=== PATIENT | male | born 1970 | race Caucasian/White ===

== ENCOUNTER → 2023-03-19 | Outpatient (CLI) | payer BC ==
--- NOTE | 2023-03-21 08:02 | CT ---
EXAMINATION TYPE: CT sinus wo con CT DLP: 556.9 mGycm, Automated exposure control for dose reduction was used. DATE OF EXAM: 03/19/2023 8:42 AM COMPARISON: None. CLINICAL INDICATION:Male, 53 years old with history of R51.9 HEADACHE, UNSPECIFIED; , headaches TECHNIQUE: Multiple thin axial images were obtained through the paranasal sinuses without the use of IV contrast. Additional coronal and sagittal reformatted images were submitted for evaluation. Contrast used: none Oral contrast used: none FINDINGS: Frontal sinuses: Normally developed and aerated. Frontal Recess: Clear Maxillary Sinuses: Normally developed and aerated. Partially septated on the right. Maxillary Infundibula([facility]): Clear, No Jennifer cells identified. Ethmoid sinuses: Normally developed and aerated. Ethmoidal notch: Protected and abutting the lateral lamina. Sphenoid sinuses: Normally developed and aerated. There is sphenoid sinus pneumatization which extend s laterally bilaterally. No dehiscence of carotid canal. No evidence of optic nerve dehiscence within the sphenoid sinus. No evidence of Onodi cells. Sphenoethmoidal recesses: Clear. Nasal septum: Deviated towards the right significantly inferiorly. Nasal Turbinates: Within normal limits. . Mastoid air cells & middle ears: The air cells are clear. The middle ears are grossly unremarkable. Modified Soft tissues & Brain: Partially seen without gross abnormality. Globes are intact. Other: Cribriform plate demonstrates symmetric Keros classification type 2 cribriform plate. No evidence of bony dehiscence of skull base. Lamina papyracea is intact without evidence of remote orbital fracture or orbital prolapse into the e thmoid sinus. Pneumatization of the ivone ady. IMPRESSION: 1. No significant mucosal sinus disease. 2. The ostiomeatal units, frontonasal and sphenoethmoidal recesses are clear. 3. Significant nasal septal deviation towards the right inferiorly.
== END | disposition home or self-care (01) ==
LOC: RADCTMAIN 08:27
PROVIDERS: ATTEND Family Medicine
DX: J34.2 Deviated nasal septum (principal); R51.9 Headache, unspecified
CPT/HCPCS: 70486

== ENCOUNTER → 2024-01-12 | Outpatient (CLI) | payer BC ==
--- NOTE | 2024-01-12 23:13 | MR ---
EXAMINATION TYPE: MR knee LT wo con DATE OF EXAM: 01/12/2024 COMPARISON: NONE HISTORY: Left knee pain and swelling x 2 mos., injured in twisting motion while golfing. Effusion per order. TECHNIQUE: Multiplanar, multisequence images of the knee is performed without IV contrast. FINDINGS: MEDIAL MENISCUS: Horizontal finding or shaped increased signal posterior horn does not definitively e xtend to articular surface. LATERAL MENISCUS: Anterior and posterior horns are intact without tear. CRUCIATE LIGAMENTS: The anterior and posterior cruciate ligaments are intact and unremarkable. COLLATERAL LIGAMENTS: The medial collateral ligament and lateral collateral ligament complex are inta ct and unremarkable. EXTENSOR MECHANISM: Visualized quadriceps and patellar tendons are intact. EFFUSION: Large size suprapatellar joint effusion. POPLITEAL CYST: No popliteal/de la rosa cyst. TRICOMPARTMENT SPACES: No significant spurring or narrowing. CARTILAGE: Tricompartmental articular cartilage is preserved. BONE MARROW SIGNAL: No focal abnormal marrow signal is appreciated. OTHER: No additional significant abnormality is appreciated. IMPRESSION: 1. Intrasubstance tear posterior horn medial meniscus. No full-thickness meniscal tear. No ligamentou s tear identified. 2. Large-sized suprapatellar joint effusion. [facility], , 01/12/2024 11:10 PM
== END | disposition home or self-care (01) ==
LOC: RADMRIMAIN 06:00
PROVIDERS: ATTEND Family Medicine